=== PATIENT | male | born 1980 | race Caucasian/White ===

== ENCOUNTER 2022-05-04 07:45 | Emergency (ER) | payer MEDICAID ==
[~2022-05-04] VITALS: Ht 167.6 cm; Wt 70.9 kg
[2022-05-04 07:51] VITALS: BP 107/76
[2022-05-04] MEDS ORDERED: acetaminophen 325mg tablet PO ONE (08:45)
[2022-05-04] MEDS ORDERED: ibuprofen tablet 400 MG TABLET PO ONE (08:45)
[2022-05-04] MEDS ORDERED: ACET-812 PO (08:46)
[2022-05-04] MEDS ORDERED: IBUP-1984 PO (08:46)
--- NOTE | 2022-05-04 08:53 | NUR ---
PT EXAMINED TREATED AND DISCHARGED BY XIOMARA HAMMER
== END 2022-05-04 08:57 | disposition home or self-care (01) ==
LOC: ER 07:46
DX: M79.604 Pain in right leg (principal); Z79.899 Other long term (current) drug therapy
CPT/HCPCS: 99283

== ENCOUNTER 2022-05-12 10:21 | Emergency (ER) | payer MEDICAID ==
[~2022-05-12] VITALS: Ht 167.6 cm; Wt 60.0 kg
[~2022-05-12 10:21] MED LIST: ACET-812 PO; IBUP-1984 PO
[2022-05-12 10:29] VITALS: BP 123/75
[2022-05-12] MEDS ORDERED: TETanus/Pertussis (Acell)/Diphther VAC/PF (Tdap-Adult) 0.5ml syringe IMVAC ONE (11:20)
[2022-05-12] MEDS ORDERED: LIDOcaine 1% W/epiNEPHrine 1:100,000 20ml vial SQ ONE (11:20)
[2022-05-12] MEDS ORDERED: LIDOCAINE 2%/EPI 1:100,000 inj. Multi-dose 20 ML VIAL SQ ONE (11:25)
[2022-05-12] MEDS ORDERED: CEPH-585 PO (13:04)
== END 2022-05-12 13:11 | disposition home or self-care (01) ==
LOC: ER 10:21
DX: S01.311A Laceration without foreign body of right ear, initial encounter (principal); X58.XXXA Exposure to other specified factors, initial encounter; Y93.89 Activity, other specified; Y92.89 Other specified places as the place of occurrence of the external cause; Y99.8 Other external cause status
CPT/HCPCS: 12013; 73130; 90471; 90715; 99283; A6449

== ENCOUNTER 2022-05-12 19:20 | Emergency (ER) | payer MEDICAID ==
[~2022-05-12 19:20] MED LIST changes: +CEPH-585 PO
== END 2022-05-12 22:00 | disposition left against medical advice (07) ==
LOC: ER 19:21
DX: H93.19 Tinnitus, unspecified ear (principal); Z53.21 Procedure and treatment not carried out due to patient leaving prior to being seen by health care provider

== ENCOUNTER 2022-05-17 10:25 | Emergency (ER) | payer MEDICAID ==
[~2022-05-17] VITALS: Ht 167.6 cm; Wt 72.7 kg
[2022-05-17 10:29] VITALS: BP 122/74
[2022-05-17] MEDS ORDERED: CEPH250T PO (11:17)
== END 2022-05-17 11:30 | disposition home or self-care (01) ==
LOC: ER 10:25
DX: S01.311D Laceration without foreign body of right ear, subsequent encounter (principal); Z79.899 Other long term (current) drug therapy; Z59.00 Homelessness unspecified; X58.XXXD Exposure to other specified factors, subsequent encounter
CPT/HCPCS: 99283; A6449

== ENCOUNTER 2022-05-19 06:25 | Emergency (ER) | payer MEDICAID ==
[~2022-05-19] VITALS: Ht 170.2 cm; Wt 68.0 kg
[~2022-05-19 06:25] MED LIST changes: +CEPH250T PO
[2022-05-19 06:56] VITALS: BP 107/70
[2022-05-19] MEDS ORDERED: bacitracin 15gm ointment TP ONE (10:50)
== END 2022-05-19 11:02 | disposition home or self-care (01) ==
LOC: ER 06:26
DX: S01.311D Laceration without foreign body of right ear, subsequent encounter (principal); T81.33XD Disruption of traumatic injury wound repair, subsequent encounter; F17.200 Nicotine dependence, unspecified, uncomplicated; X58.XXXD Exposure to other specified factors, subsequent encounter
CPT/HCPCS: 99282

== ENCOUNTER 2022-05-24 02:45 | Emergency (ER) | payer MEDICAID | END 2022-05-24 04:55 | disposition left against medical advice (07) | LOC: ER 02:46 | DX: H92.01 Otalgia, right ear (principal); Z53.21 Procedure and treatment not carried out due to patient leaving prior to being seen by health care provider ==

== ENCOUNTER 2022-09-01 03:32 | Emergency (ER) | payer MEDICAID ==
[~2022-09-01] VITALS: Ht 170.2 cm; Wt 72.7 kg
[~2022-09-01 03:32] MED LIST changes: -CEPH250T PO; -IBUP-1984 PO
[2022-09-01 03:40] VITALS: BP 112/81
== END 2022-09-01 07:00 | disposition left against medical advice (07) ==
LOC: ER 03:33
DX: R21 Rash and other nonspecific skin eruption (principal); Z53.21 Procedure and treatment not carried out due to patient leaving prior to being seen by health care provider
CPT/HCPCS: 99281

== ENCOUNTER 2022-09-06 12:35 | Emergency (ER) | payer MEDICAID ==
--- NOTE | 2022-09-06 13:15 | NUR ---
NOT IN LOBBY.
--- NOTE | 2022-09-06 13:31 | NUR ---
NOT IN LOBBY.
== END 2022-09-06 13:53 | disposition left against medical advice (07) ==
LOC: ER 12:35
DX: Z00.00 Encounter for general adult medical examination without abnormal findings (principal); Z53.21 Procedure and treatment not carried out due to patient leaving prior to being seen by health care provider

== ENCOUNTER 2022-09-18 18:45 | Emergency (ER) | payer MEDICAID ==
[~2022-09-18] VITALS: Ht 167.6 cm; Wt 72.7 kg
[2022-09-18 19:14] VITALS: BP 108/76
[2022-09-18] MEDS ORDERED: ibuprofen tablet 400 MG TABLET PO ONE (19:55)
== END 2022-09-18 20:17 | disposition home or self-care (01) ==
LOC: ER 18:45
DX: S60.222A Contusion of left hand, initial encounter (principal); Z59.00 Homelessness unspecified; Z56.0 Unemployment, unspecified; Z79.899 Other long term (current) drug therapy; X58.XXXA Exposure to other specified factors, initial encounter; Y93.89 Activity, other specified; Y92.89 Other specified places as the place of occurrence of the external cause; Y99.8 Other external cause status
CPT/HCPCS: 29125; 73130; 99283

== ENCOUNTER 2022-10-12 19:14 | Emergency (ER) | payer MEDICAID ==
[~2022-10-12] VITALS: Ht 167.6 cm; Wt 65.2 kg
[2022-10-12 19:16] VITALS: BP 110/68
[2022-10-12] MEDS ORDERED: SULF1TAB49 PO (19:53)
[2022-10-12] MEDS ORDERED: HYDROcodone/acetaminophen 10/325mg tab PO ONE (19:55)
[2022-10-12] MEDS ORDERED: sulfamethoxazole/trimethoprim DS (800/160mg) tablet PO ONE (19:55)
== END 2022-10-12 20:38 | disposition home or self-care (01) ==
LOC: ER 19:15
DX: L02.811 Cutaneous abscess of head [any part, except face] (principal); F15.20 Other stimulant dependence, uncomplicated; F12.90 Cannabis use, unspecified, uncomplicated
CPT/HCPCS: 99284

== ENCOUNTER 2022-12-07 11:00 | Emergency (ER) | payer MEDICAID ==
[~2022-12-07] VITALS: Ht 167.6 cm; Wt 80.0 kg
[2022-12-07 11:07] VITALS: BP 154/85; PULSE 84; RESP 18; TEMP 97.8; O2SAT 97
[2022-12-07] MEDS ORDERED: PERM60CR19 TOP (11:24)
[2022-12-07] MEDS ORDERED: SULF1TAB49 PO (11:24)
[2022-12-07] MEDS ORDERED: CEPH-585 PO (11:24)
== END 2022-12-07 11:44 | disposition home or self-care (01) ==
LOC: ER 11:01
DX: L03.90 Cellulitis, unspecified (principal); F12.10 Cannabis abuse, uncomplicated; F15.10 Other stimulant abuse, uncomplicated; Z56.0 Unemployment, unspecified; Z59.00 Homelessness unspecified; Z79.899 Other long term (current) drug therapy
CPT/HCPCS: 99283

== ENCOUNTER 2023-01-21 13:12 | Emergency (ER) | payer MEDICAID | END 2023-01-21 14:11 | disposition left against medical advice (07) | LOC: ER 13:12 | DX: Z00.8 Encounter for other general examination (principal); Z53.21 Procedure and treatment not carried out due to patient leaving prior to being seen by health care provider ==

== ENCOUNTER 2023-04-15 18:49 | Emergency (ER) | payer SELFPAY ==
[~2023-04-15] VITALS: Ht 170.2 cm; Wt 68.2 kg
[2023-04-15 19:39] VITALS: BP 120/83; PULSE 100; RESP 18; TEMP 98.6; O2SAT 98
== END 2023-04-15 21:42 | disposition left against medical advice (07) ==
LOC: ER 18:51
DX: R10.9 Unspecified abdominal pain (principal); Z53.21 Procedure and treatment not carried out due to patient leaving prior to being seen by health care provider
CPT/HCPCS: 99281